=== PATIENT | male | born 1930 | race African-American/Black ===

== ENCOUNTER 2019-07-15 21:14 | Emergency (ER) | payer MEDICARE, MEDICAID ==
[~2019-07-15] VITALS: Ht 170.2 cm; Wt 64.4 kg
--- NOTE | 2019-07-15 21:26 | NUR ---
SEEN AND EXAMINED BY
--- NOTE | 2019-07-15 21:27 | NUR ---
FLU SWAB SAMPLE TAKEN AND SENT TO LAB
[2019-07-15] MEDS ORDERED: Magnesium 1GM/D5W 100ML PREMIX 200 ML IV ONE (21:36)
[2019-07-15] MEDS ORDERED: Magnesium 1GM/D5W 100ML PREMIX 100 ML IV ONE ×2 (21:41→22:38)
--- NOTE | 2019-07-15 21:47 | NUR ---
PT CAME TO ER BED 3 C/O SOB WHEN LYING DOWN. CURRENTLY NOT IN ANY RESPIRATORY DISTRESS. NO SOB. BREATHING EVENLY AND UNLABORED. POSITIONED IN HIGH-MARTÍNEZ'S POSITION. CONNECTED TO THE HEALTH BENEFITS SPECIALIST.
--- NOTE | 2019-07-15 21:47 | NUR ---
RT CALLED FOR MEDICATION ADMINISTRATION
--- NOTE | 2019-07-15 21:55 | NUR ---
BLOOD TAKEN TO BY ROVING TECHNICIAN.
[2019-07-15] MEDS ORDERED: ALBUTEROL FS 2.5 MG/3 ML VIAL.NEB ONE (21:59)
[2019-07-15] MEDS ORDERED: IPRATROPIUM NEB FS 0.5 MG/2.5 ML AMPUL.NEB ONE (21:59)
[2019-07-15] MEDS ORDERED: ALBUTEROL FS 2.5 MG/3 ML VIAL.NEB CONTNEB ONE (22:00)
[2019-07-15] MEDS ORDERED: IPRATROPIUM NEB FS 0.5 MG/2.5 ML AMPUL.NEB NEB ONE (22:00)
[2019-07-15 22:02] LABS: BASOPHILS # (AUTO) 0.1 /CMM (0.0-0.2); BASOPHILS % (AUTO) 1.3 % (0.0-2.0); HEMATOCRIT 33 % (39-51); HEMOGLOBIN 10.8 g/dL (13.5-17.5); LYMPHOCYTES # (AUTO) 1.8 /CMM (0.8-4.8); LYMPHOCYTES % (AUTO) 20.1 % (20.0-44.0); MEAN CORPUSCULAR HGB CONC 32 g/dl (31.0-36.0); MEAN CORPUSCULAR VOLUME 78 fL (80-96); MONOCYTES # (AUTO) 0.7 /CMM (0.1-1.30); MONOCYTES % (AUTO) 7.6 % (2.0-12.0); NEUTROPHILS # (AUTO) 5.7 /CMM (1.8-8.9); PLATELET COUNT (AUTO) 308 /CMM (150-450); RED BLOOD CELL COUNT(AUTO) 4.27 MIL/uL (4.5-6.0)
--- NOTE | 2019-07-15 22:07 | NUR ---
XRAY AT BEDSIDE
[2019-07-15 22:24] LABS: B-TYPE NATRIURETIC PEPTIDE 48 PG/ML (0-125); CARBON DIOXIDE 29 mmol/L (21-32); CHLORIDE 107 mmol/L (98-107); GLUCOSE 127 mg/dL (74-106); POTASSIUM 3.6 mmol/L (3.5-5.1); SODIUM SERUM 144 mmol/L (136-145); UREA NITROGEN, BLOOD 16 mg/dL (7-18)
[2019-07-15 22:34] LABS: CALCIUM, SERUM 8.6 mg/dL (8.5-10.1)
--- NOTE | 2019-07-15 23:30 | NUR ---
[facility] called. Per [facility] will not accept transport.
--- NOTE | 2019-07-15 23:35 | NUR ---
[facility] ETA 45 MINS 0010
--- NOTE | 2019-07-16 00:28 | NUR ---
REPORT GIVEN RICHARD FOR JESSE.
--- NOTE | 2019-07-16 00:28 | NUR ---
[facility] HERE FOR PICKUP PATIENT. REPORT GIVEN FOR JESSE. AND TRANSFER.
[2019-07-16 00:47] VITALS: BP 135/76
== END 2019-07-16 00:48 ==
LOC: ER 21:20
DX: R06.02 Shortness of breath (principal); I10 Essential (primary) hypertension; J44.9 Chronic obstructive pulmonary disease, unspecified; I44.0 Atrioventricular block, first degree; Z98.890 Other specified postprocedural states; Z89.611 Acquired absence of right leg above knee
CPT/HCPCS: 36415; 71045; 80048; 83605; 83880; 84484; 85025; 85730; 87040; 87804 ×2; 93005 ×2; 94644; 96365; 99285; J3475 ×2; J7030

== ENCOUNTER 2020-06-23 20:45 | Inpatient (IN) | payer MEDICARE, OTHER ==
[~2020-06-23] VITALS: Ht 185.4 cm; Wt 48.5 kg
[~2020-06-23 20:45] MED LIST: ASPI-1420 PO; CHOL100099 PO; FLUT16SP BNOSTRILS; FLUT1BLS15 INH; LISI40TA4 PO; TAMO20TA4 PO
[2020-06-23] MEDS ORDERED: DEXAMETHASONE SOD PHOSPHATE 10 MG/ML VIAL IV ONE (21:00)
[2020-06-23] MEDS ORDERED: ALBUTEROL FS 2.5 MG/3 ML VIAL.NEB NEB ONE (21:00)
[2020-06-23] MEDS ORDERED: IPRATROPIUM NEB FS 0.5 MG/2.5 ML AMPUL.NEB NEB ONE (21:00)
[2020-06-23] MEDS ORDERED: DEXAMETHASONE SOD PHOSPHATE 10 MG/ML VIAL ONE (21:04)
--- NOTE | 2020-06-23 21:13 | NUR ---
NOE Lucero FROM [facility] FOR SOB &02 SAT 60% PLACED ON 15LNRB PER RA. LINE STARED,LABS DRAWN ALL ORDERES CARRIED OUT, PAGED RT FOR BREATHING TX.
--- NOTE | 2020-06-23 21:13 | NUR ---
PT CURRENTLY ON 2L NC SATING 100%
[2020-06-23] MEDS ORDERED: ALBUTEROL FS 2.5 MG/3 ML VIAL.NEB ONE (21:15)
[2020-06-23] MEDS ORDERED: IV NS 0.9% 1,000 ML BAG IV ONE (21:30)
[2020-06-23 21:42] LABS: BASOPHILS % (AUTO) 0.2 % (0.0-2.0); HEMATOCRIT 36 % (39-51); LYMPHOCYTES # (AUTO) 1.9 /CMM (0.8-4.8); LYMPHOCYTES % (AUTO) 7.8 % (20.0-44.0); MEAN CORPUSCULAR HGB CONC 31 g/dl (31.0-36.0); MEAN CORPUSCULAR VOLUME 81 fL (80-96); MONOCYTES # (AUTO) 1.4 /CMM (0.1-1.30); MONOCYTES % (AUTO) 5.7 % (2.0-12.0); NEUTROPHILS # (AUTO) 21.4 /CMM (1.8-8.9); NEUTROPHILS % (AUTO) 86.3 % (43.0-81.0); PLATELET COUNT (AUTO) 437 /CMM (150-450); RED BLOOD CELL COUNT(AUTO) 4.41 MIL/uL (4.5-6.0); WHITE BLOOD COUNT (AUTO) 24.8 K/uL (4.3-11.0)
[2020-06-23 21:49] LABS: CALCIUM, SERUM 9.5 mg/dL (8.5-10.1); CARBON DIOXIDE 27 mmol/L (21-32); CHLORIDE 101 mmol/L (98-107); CREATININE 1.1 mg/dL (0.6-1.3); GLUCOSE 147 mg/dL (74-106); SODIUM SERUM 137 mmol/L (136-145); UREA NITROGEN, BLOOD 18 mg/dL (7-18)
[2020-06-23] MEDS ORDERED: VANCOMYCIN 1 GM in IV D5W 250 ML IV ONE (22:00)
[2020-06-23] MEDS ORDERED: CEFEPIME 1 GM in IV D5W 50 ML IV ONE (22:00)
[2020-06-23 22:02] LABS: ALANINE AMINOTRANSFERASE 15 U/L (12-78); ALBUMIN 2.7 g/dL (3.4-5.0); ALKALINE PHOSPHATASE 186 U/L (46-116); ASPARTATE AMINOTRANSFERASE 42 U/L (15-37); B-TYPE NATRIURETIC PEPTIDE 390 PG/ML (0-125); BILIRUBIN,TOTAL 0.4 mg/dL (0.2-1.0); TOTAL PROTEIN, SERUM 7.8 g/dL (6.4-8.2)
--- NOTE | 2020-06-23 22:11 | NUR ---
er talking to dr. manish barrett regarding pt admission.
[2020-06-23] MEDS ORDERED: CEFEPIME 1 GM VIAL ONE (22:19)
[2020-06-23] MEDS ORDERED: VANCOMYCIN 1 GM VIAL ONE (22:19)
[2020-06-24 00:01] LABS: CREATINE KINASE, TOTAL 258 U/L (39-308); FERRITIN 1238 ng/mL (8-388)
--- NOTE | 2020-06-24 00:15 | NUR ---
pt remains in bed sleepign easily aroused to name call, blankets and pillow provided for comfort. pt informed about pending bed assignment. vss will continue to monitor
[2020-06-24] MEDS: CEFEPIME 2 GM in IV D5W 100 ML IV SCH ×2 (00:24→10:06)
[2020-06-24] MEDS ORDERED: MAGNESIUM HYDROXIDE 30 ML UDC PO PRN (00:30)
[2020-06-24] MEDS ORDERED: IPRATROPIUM NEB FS 0.5 MG/2.5 ML AMPUL.NEB NEB PRN (00:30)
[2020-06-24] MEDS: ENOXAPARIN SODIUM 40 MG/0.4 ML DISP.SYRIN SQ SCH (00:30)
[2020-06-24] MEDS ORDERED: ALBUTEROL FS 2.5 MG/0.5 ML VIAL.NEB NEB PRN (00:30)
[2020-06-24] MEDS ORDERED: MAG HYDROX/AL HYDROX/SIMETH 30 ML UDC PO PRN (00:30)
[2020-06-24] MEDS ORDERED: HYDROCODONE/APAP 5/325MG TABLET PO PRN (00:30)
[2020-06-24] MEDS ORDERED: ZOLPIDEM TARTRATE 5 MG TABLET PO PRN (00:30)
[2020-06-24] MEDS ORDERED: ACETAMINOPHEN 325 MG TABLET PO PRN (00:30)
[2020-06-24] MEDS ORDERED: Z GUARD REMEDY 2 OZ OINT TP PRN (00:30)
[2020-06-24] MEDS ORDERED: ONDANSETRON HCL/PF 4 MG/2 ML VIAL IVP PRN (00:30)
[2020-06-24] MEDS ORDERED: ENOXAPARIN SODIUM 40 MG/0.4 ML DISP.SYRIN SQ ONE (02:50)
[2020-06-24] MEDS ORDERED: methylPREDNISolone SOD SUCC 40 MG/ML VIAL ONE (05:07)
[2020-06-24] MEDS: methylPREDNISolone SOD SUCC 125 MG/2ML VIAL IV SCH ×3 (05:09→21:13)
--- NOTE | 2020-06-24 05:30 | NUR ---
PT SATTING AT 100% ON 2 L, NO COMPLAINT OF PAIN OR DISCOMFORT AT THE MOMENT, VSS
--- NOTE | 2020-06-24 06:06 | NUR ---
PATIENT IN BED ASLEEP, EASILY AROUSABLE BY VOICE. HOOKED TO MONITOR. ON 2L O2 VIA NC, VSS. WILL CONTINUE TO MONITOR ACCORDINGLY
--- NOTE | 2020-06-24 07:32 | NUR ---
PATIENT IN BED ASLEEP, EASILY AROUSABLE BY VOICE. HOOKED TO MONITOR. ON 2L O2 VIA NC, VSS. WILL CONTINUE TO MONITOR ACCORDINGLY
[2020-06-24] MEDS ORDERED: ALBUTEROL SULFATE 8 GM HFA.AER.AD IH PRN (08:00)
[2020-06-24] MEDS ORDERED: IPRATROPIUM BROMIDE 14 GM INHALER (or 12.9 GM) INH PRN (08:00)
[2020-06-24] MEDS: FLUTICASONE/VILANTEROL 1 EACH BLST.W.DEV IH SCH (09:26)
[2020-06-24] MEDS: FLUTICASONE PROPIONATE 16 GM BOTTLE NS SCH (09:27)
[2020-06-24] MEDS: TAMOXIFEN CITRATE 10 MG TABLET PO SCH (09:30)
[2020-06-24] MEDS: ASPIRIN EC 81 MG TABLET.DR PO SCH (09:30)
--- NOTE | 2020-06-24 09:42 | NUR ---
PATIENT IN BED ASLEEP, EASILY AROUSABLE BY VOICE. HOOKED TO MONITOR. ON 2L O2 VIA NC, VSS. WILL CONTINUE TO MONITOR ACCORDINGLY
--- NOTE | 2020-06-24 11:16 | NUR ---
SERVED W BREAKFAST TRAY. TOLERATED PO WELL.
--- NOTE | 2020-06-24 12:09 | NUR ---
PATIENT REPOSITIONED TO HIS LEFT SIDE
--- NOTE | 2020-06-24 13:09 | NUR ---
PATIENT IN BED ASLEEP, EASILY AROUSABLE BY VOICE. HOOKED TO MONITOR. ON 2L O2 VIA NC, VSS. WILL CONTINUE TO MONITOR ACCORDINGLY
--- NOTE | 2020-06-24 14:12 | NUR ---
PATIENT REFUSED LUNCH TRAY. PLACED FOOD AT BEDSIDE
--- NOTE | 2020-06-24 15:36 | NUR ---
PATIENT REPOSITIONED TO HIS RIGHT SIDE
--- NOTE | 2020-06-24 15:51 | NUR ---
Readmitted <30 days, he resides from [place] at [place] [phone]. Has a walker as needed for ambulation. Requires assistance with adl's. Current dc plan is to return to [facility] if COVID test is negative. Addendum: 06/24/20 at 1551 by EMELINA CANTU RN Amended: Links added.
[2020-06-24] MEDS: VANCOMYCIN 1 GM in IV D5W 250 ML IV SCH (17:02)
--- NOTE | 2020-06-24 18:30 | NUR ---
PATIENT SERVED WITH DINNER TRAY. TOLERATING PO WELL.
--- NOTE | 2020-06-24 18:56 | NUR ---
CLEANED PATIENT. CHANGED SHEET AND HOSP GOWN.
--- NOTE | 2020-06-24 19:07 | NUR ---
PATIENT POSITIONED TO SUPINE POSITION
--- NOTE | 2020-06-24 19:18 | NUR ---
ENDORSEMENT GIVEN TO TYREE TRUJILLO FOR JESSE. PATIENT NOTED TO HAVE DIARRHEA WITH BLACK COLORED STOOL. ENDORSED TO BE REPORTED TO ADMITTING MD.
--- NOTE | 2020-06-24 19:20 | NUR ---
PT AAOX3, VSS, RESPIRATIONS EVEN AND UNLABORED. PT PLACED ON 3 L O2 VIA N/C. PT CONNECTED TO THE MONITOR AND POX
[2020-06-24] MEDS ORDERED: methylPREDNISolone SOD SUCC 125 MG/2ML VIAL ONE (21:05)
--- NOTE | 2020-06-24 22:00 | NUR ---
PT REPOSITIONED TO LEFT SIDE FOR COMFORT. VSS. NAD NOTED
--- NOTE | 2020-06-25 | NUR ---
PT REPOSITIONED TO RIGHT SIDE FOR COMFORT. VSS. NAD NOTED
[2020-06-25] MEDS: ENOXAPARIN SODIUM 40 MG/0.4 ML DISP.SYRIN SQ SCH ×2 (00:46→20:51)
[2020-06-25] MEDS: IV NS 0.9% 1,000 ML IV PRN ×2 (00:55→16:44)
--- NOTE | 2020-06-25 02:15 | NUR ---
PTPLACED ON SUPINE POSITION FOR COMFORT. VSS. NAD NOTED
--- NOTE | 2020-06-25 04:23 | NUR ---
PT REPOSITIONED TO R SIDE FOR COMFORT. VSS. NAD NOTED
[2020-06-25] MEDS ORDERED: methylPREDNISolone SOD SUCC 40 MG/ML VIAL ONE (05:13)
[2020-06-25] MEDS: methylPREDNISolone SOD SUCC 125 MG/2ML VIAL IV SCH ×3 (05:37→20:40)
[2020-06-25 05:41] LABS: BASOPHILS % (AUTO) 0.2 % (0.0-2.0); EOSINOPHILS % (AUTO) 0.1 % (0.0-6.0); HEMATOCRIT 28 % (39-51); HEMOGLOBIN 8.6 g/dL (13.5-17.5); LYMPHOCYTES # (AUTO) 0.6 /CMM (0.8-4.8); LYMPHOCYTES % (AUTO) 3.5 % (20.0-44.0); MEAN CORPUSCULAR HGB CONC 31 g/dl (31.0-36.0); MEAN CORPUSCULAR VOLUME 80 fL (80-96); MONOCYTES # (AUTO) 0.4 /CMM (0.1-1.30); MONOCYTES % (AUTO) 2.2 % (2.0-12.0); NEUTROPHILS # (AUTO) 15.4 /CMM (1.8-8.9); PLATELET COUNT (AUTO) 314 /CMM (150-450); RED BLOOD CELL COUNT(AUTO) 3.44 MIL/uL (4.5-6.0); WHITE BLOOD COUNT (AUTO) 16.4 K/uL (4.3-11.0)
[2020-06-25 05:57] LABS: CALCIUM, SERUM 8.9 mg/dL (8.5-10.1); CARBON DIOXIDE 27 mmol/L (21-32); CHLORIDE 106 mmol/L (98-107); CREATININE 0.7 mg/dL (0.6-1.3); GLUCOSE 144 mg/dL (74-106); PHOSPHORUS 2.4 mg/dL (2.5-4.9); POTASSIUM 3.7 mmol/L (3.5-5.1); SODIUM SERUM 142 mmol/L (136-145); UREA NITROGEN, BLOOD 19 mg/dL (7-18)
--- NOTE | 2020-06-25 06:14 | NUR ---
PT PLACED ON SUPINE POSITION. PT AWAKE AND EATING AT BEDSIDE. PT HAS NO MEDICAL COMPLAINTS AT THIS TIME.
--- NOTE | 2020-06-25 07:41 | NUR ---
REPORT GIVEN TO LISSY RTUJILLO FOR JESSE.
[2020-06-25] MEDS: ASPIRIN EC 81 MG TABLET.DR PO SCH (08:24)
[2020-06-25] MEDS: TAMOXIFEN CITRATE 10 MG TABLET PO SCH (08:24)
[2020-06-25] MEDS: FLUTICASONE PROPIONATE 16 GM BOTTLE NS SCH (08:24)
[2020-06-25] MEDS: FLUTICASONE/VILANTEROL 1 EACH BLST.W.DEV IH SCH (08:24)
[2020-06-25] MEDS: CEFEPIME 2 GM in IV D5W 100 ML IV SCH ×2 (10:03→22:18)
--- NOTE | 2020-06-25 10:35 | NUR ---
RECEIVED PT AWAKE IN BED AT THIS TIME.AOX4, PT ABLE TO MAKE NEEDS KNOWN.PT NOTED ON OXYGEN 2LPM VIA NC. IV ACCESS NOTED IN R-HAND G#22, INTACT, PATENT AND FLUSHING WELL. SAFETY PRECAUTIONS IN PLACE AND MAINTAINED AT ALL TIMES, BED IN LOWEST LOCKED POSITION, HOB ELEVATED, CALL LIGHT WITHIN REACH, WILL CONTINUE TO MONITOR
[2020-06-25] MEDS: VANCOMYCIN 1 GM in IV D5W 250 ML IV SCH (11:00)
[2020-06-25] MEDS ORDERED: ALBUTEROL SULFATE 8 GM HFA.AER.AD IH SCH (13:30)
[2020-06-25] MEDS ORDERED: K PHOS NEUTRAL 250 MG TABLET PO ONE (16:30)
--- NOTE | 2020-06-25 19:05 | NUR ---
RN CLOSING NOTES PT AWAKE IN BED AT THIS TIME.PT REMAINED STABLE THROUGHOUT SHIFT. ALL CARE, NEED, MEDICATIONS AND TREATMENT ADMINISTERED ANTICIPATED PER ORDER. PT KEPT CLEAN AND DRY. SAFETY PRECAUTION IN PLACE AND MAINTAINED AT ALL TIMES. BED IN LOWEST LOCKED POSITION, HOB ELEVATED, SIDE RAILS UP X 2, CALL LIGHT AND TABLE WITHIN REACH. WILL ENDORSE TO CINDER PIT CRANE OPERATOR NURSE FOR JESSE
--- NOTE | 2020-06-25 19:20 | NUR ---
REC'D REPORT FROM RONNIE YUAN FOR JESSE. PT RESTING COMFORTABLY IN BED. VITAL SIGNS STABLE. STILL ON CONTINUOUS EDGE BANDING MACHINE OFFBEARER AND PULSE OX, WILL CONTINUE TO MONITOR
[2020-06-25] MEDS: ALBUTEROL SULFATE 8 GM HFA.AER.AD IH SCH (19:30)
[2020-06-25] MEDS: IPRATROPIUM BROMIDE 14 GM INHALER (or 12.9 GM) INH SCH (19:32)
[2020-06-26] MEDS: ALBUTEROL SULFATE 8 GM HFA.AER.AD IH SCH ×4 (01:40→19:30)
[2020-06-26] MEDS: IPRATROPIUM BROMIDE 14 GM INHALER (or 12.9 GM) INH SCH ×4 (01:46→19:30)
--- NOTE | 2020-06-26 03:20 | NUR ---
PT ACCIDENTALLY PULLED OUT IV. Catheter intact and site benign. Pressure and 4x4 applied to site. No bleeding noted.
--- NOTE | 2020-06-26 03:40 | NUR ---
PT CLEANED, CHANGED, REPOSITIONED, BED SHEETS CHANGED. RESTING COMFORTABLY IN BED. VITAL SIGNS STABLE. CALL LIGHT WITHIN REACH. WILL CONTINUE TO MONITOR
[2020-06-26] MEDS: methylPREDNISolone SOD SUCC 125 MG/2ML VIAL IV SCH ×3 (05:10→21:00)
[2020-06-26] MEDS: VANCOMYCIN 1 GM in IV D5W 250 ML IV SCH ×2 (05:12→23:00)
[2020-06-26 06:12] LABS: CALCIUM, SERUM 9.1 mg/dL (8.5-10.1); CREATININE 0.7 mg/dL (0.6-1.3); POTASSIUM 3.6 mmol/L (3.5-5.1)
--- NOTE | 2020-06-26 07:21 | NUR ---
REPORT GIVEN TO RONNIE GUERRERO FOR JESSE
[2020-06-26] MEDS: ASPIRIN EC 81 MG TABLET.DR PO SCH (09:25)
[2020-06-26] MEDS: FLUTICASONE PROPIONATE 16 GM BOTTLE NS SCH (09:25)
[2020-06-26] MEDS: FLUTICASONE/VILANTEROL 1 EACH BLST.W.DEV IH SCH (09:25)
[2020-06-26] MEDS: CEFEPIME 2 GM in IV D5W 100 ML IV SCH ×2 (09:26→22:00)
[2020-06-26] MEDS: TAMOXIFEN CITRATE 10 MG TABLET PO SCH (09:26)
[2020-06-26] MEDS: ENSURE ENLIVE 237 ML LIQUID (VANILLA) PO SCH ×3 (09:30→16:38)
[2020-06-26] MEDS ORDERED: NEUTRA PHOS 1 POWD.PACKET PO ONE (12:00)
[2020-06-26] MEDS ORDERED: DOXY150T3 PO (17:46)
[2020-06-26] MEDS ORDERED: CEFT1VIA15 IV (17:46)
--- NOTE | 2020-06-26 19:44 | NUR ---
PATIENT IS AAOX4. NO SOB. BREATHING EVENLY AND UNLABORED ON ROOM AIR. CONNECTED TO THE MONITOR. WILL CONTINUE TO MONITOR PATIENT CLOSELY.
[2020-06-26] MEDS: ENOXAPARIN SODIUM 40 MG/0.4 ML DISP.SYRIN SQ SCH (21:00)
--- NOTE | 2020-06-26 21:23 | NUR ---
SPOKE WITH ESTRELLA SEYMOUR FROM MAIN LAB. NO RESULT IS RECIEVED FOR CORONAVIRUS PCR. [facility] WILL FOLLOW UP IN THE MORNING.
--- NOTE | 2020-06-26 23:33 | NUR ---
PATIENT IS SLEEPING. EASILY AROUSABLE BY VERBAL STIMULI. BREATHING EVENLY AND UNLABORED ON ROOM AIR. CONNECTED TO THE MONITOR. SIDE RAILS UP FOR SAFETY. BED AT THE LOWEST POSITION. CALL LIGHT IS WITHIN REACH. VSS. WILL CONTINUE TO MONITOR PATIENT.
[2020-06-27] MEDS: ALBUTEROL SULFATE 8 GM HFA.AER.AD IH SCH ×3 (01:33→12:41)
[2020-06-27] MEDS: IPRATROPIUM BROMIDE 14 GM INHALER (or 12.9 GM) INH SCH ×3 (01:34→12:41)
[2020-06-27] MEDS: methylPREDNISolone SOD SUCC 125 MG/2ML VIAL IV SCH ×2 (05:00→12:11)
[2020-06-27 05:24] LABS: CALCIUM, SERUM 9.3 mg/dL (8.5-10.1); CREATININE 0.7 mg/dL (0.6-1.3); PHOSPHORUS 1.2 mg/dL (2.5-4.9); POTASSIUM 3.3 mmol/L (3.5-5.1)
--- NOTE | 2020-06-27 08:02 | NUR ---
REPORT GIVEN TO ATTILA TRUJILLO FOR JESSE.
[2020-06-27] MEDS: ENSURE ENLIVE 237 ML LIQUID (VANILLA) PO SCH ×3 (08:47→16:40)
[2020-06-27] MEDS: FLUTICASONE PROPIONATE 16 GM BOTTLE NS SCH (08:47)
[2020-06-27] MEDS: TAMOXIFEN CITRATE 10 MG TABLET PO SCH (08:47)
[2020-06-27] MEDS: FLUTICASONE/VILANTEROL 1 EACH BLST.W.DEV IH SCH (08:47)
[2020-06-27] MEDS: ASPIRIN EC 81 MG TABLET.DR PO SCH (08:47)
[2020-06-27] MEDS: CEFEPIME 2 GM in IV D5W 100 ML IV SCH (10:06)
[2020-06-27] MEDS ORDERED: POTASSIUM CHLORIDE 20 MEQ POWDER PACKET PO ONE (11:00)
[2020-06-27] MEDS ORDERED: Sodium Phosphate 15 MMOL in IV NS 0.9% 245 ML IV SCH (12:00)
--- NOTE | 2020-06-27 15:11 | NUR ---
CALL FROM CASE MANAGEMENT, D/C AND ETA FOR AMBULANCE IS [id number]
[2020-06-27] MEDS: VANCOMYCIN 1 GM in IV D5W 250 ML IV SCH (16:40)
--- NOTE | 2020-06-27 18:24 | NUR ---
CALL FROM [facility] AL[facility]AD[facility], DISCHARGING PATIENT PAIGHT
--- NOTE | 2020-06-27 19:01 | NUR ---
REPORT GIVEN TO BODY BUMPER.
--- NOTE | 2020-06-27 19:06 | NUR ---
REPORT GIVEN TO UDAY TRUJILLO AT [facility]. PATIENT'S VITALS STABLE. NO DISTRESS NOTED. DISCHARGE PAPERWORKS GIVEN TO TOBACCO CLASSER. PATIENT'S SKIN DRY AND INTACT. LEFT IN STABLE CONDITION.
--- NOTE | 2020-06-27 19:11 | NUR ---
SALDIVAR NEEDLE REMOVED. Needle is intact and site benign. Pressure and 4x4 applied to site. No bleeding noted. Patient tolerated the removal of saldivar needle well.
[2020-06-27 19:18] VITALS: BP 130/62
== END 2020-06-27 19:19 | DRG 189 ==
LOC: ER 20:50 → TRANSITION 21:59
PROVIDERS: ADMIT Internal Medicine; ATTEND Nurse Practitioner Acute Care
DX: J96.21 Acute and chronic respiratory failure with hypoxia (principal); G93.41 Metabolic encephalopathy; E43 Unspecified severe protein-calorie malnutrition; Z68.1 Body mass index [BMI] 19.9 or less, adult; J44.1 Chronic obstructive pulmonary disease with (acute) exacerbation; R64 Cachexia; I10 Essential (primary) hypertension; D63.8 Anemia in other chronic diseases classified elsewhere; Z79.899 Other long term (current) drug therapy; Z89.611 Acquired absence of right leg above knee; E86.0 Dehydration; Z20.828 Contact with and (suspected) exposure to other viral communicable diseases; Z87.891 Personal history of nicotine dependence; F03.90 Unspecified dementia, unspecified severity, without behavioral disturbance, psychotic disturbance, mood disturbance, and anxiety; J44.9 Chronic obstructive pulmonary disease, unspecified; Z79.810 Long term (current) use of selective estrogen receptor modulators (SERMs); Z79.82 Long term (current) use of aspirin; R73.9 Hyperglycemia, unspecified
CPT/HCPCS: 36415; 71045-TC; 80048-TC; 80053-TC; 80202-TC; 82550-TC; 82728-TC; 83605-TC; 83615-TC; 83735-TC; 83880; 84100-TC; 84484-TC; 85025-TC; 85730-TC; 87040-TC; 87081-TC; 97110-TC; 97116-TC; 97530-TC; A9563; G0378; J0692; J1100; J1650; J2405; J2920; J2930; J3370; J7030; J7050; J7060; U0003